=== PATIENT | male | born 1985 | race Caucasian/White ===

== ENCOUNTER 2022-06-26 05:37 | Observation (INO) | payer OTHER ==
[~2022-06-26] VITALS: Ht 175.3 cm; Wt 83.9 kg
[2022-06-26 06:38] LABS: HEMOGLOBIN 12.5 gm/dl (14.0-17.5); RED BLOOD COUNT 4.3 M/UL (4.20-5.50); WHITE BLOOD COUNT 15.1 K/UL (4.5-11.0)
[2022-06-26 07:01] LABS: BUN/CREATININE RATIO 20 (0-10)
[2022-06-27] MEDS ORDERED: HYDROCODON-ACE1 EAC2 PO (08:43)
[2022-06-27] MEDS ORDERED: COLACE100 MG PO (08:43)
--- NOTE | 2022-06-27 09:28 | NUR ---
DR. OTERO PULLED ZAFAR DRAIN THIS AM AND COVERED WITH BANDAGE
== END 2022-06-27 10:49 | disposition home or self-care (01) ==
LOC: ER1 05:37 → M/S 10:33 → CDU 10:33 → M/S 12:06
PROVIDERS: ADMIT Surgery
PROC: 0DTJ4ZZ Resection of Appendix, Percutaneous Endoscopic Approach (ICD-10-PCS; principal; 2022-06-26 11:30)
DX: K35.30 Acute appendicitis with localized peritonitis, without perforation or gangrene (principal); K50.90 Crohn's disease, unspecified, without complications; F17.290 Nicotine dependence, other tobacco product, uncomplicated
CPT/HCPCS: 80053; 81001; 83605; 83690; 85025; 87086; 96365; 96375; 99285; G0378; J1100; J1170; J1885; J2001; J2250; J2270; J2405; J2543; J2704; J3010; J3480; Q9967